=== PATIENT | female | born 1930 | race Two or more races ===

== ENCOUNTER 2019-01-17 12:26 | Emergency (ER) | payer OTHER ==
[~2019-01-17] VITALS: Ht 165.1 cm; Wt 68.0 kg
[2019-01-17] MEDS ORDERED: METFORMIN HCL500 MG (13:46)
[2019-01-17] MEDS ORDERED: LOTREL 10-20 M1 EACH (13:46)
[2019-01-17] MEDS ORDERED: ZOLOFT25 MG (13:47)
[2019-01-17] MEDS ORDERED: ZOCOR20 MG (13:47)
[2019-01-17] MEDS ORDERED: AMOX1TAB5 (13:47)
[2019-01-17] MEDS ORDERED: SILVADENE20 GM (13:48)
== END 2019-01-17 17:03 | disposition home or self-care (01) ==
LOC: ER 12:26
DX: M79.604 Pain in right leg (principal); T24.201S Burn of second degree of unspecified site of right lower limb, except ankle and foot, sequela; T79.8XXS Other early complications of trauma, sequela; X11.8XXS Contact with other hot tap-water, sequela